=== PATIENT | female | born 1980 | race Two or more races ===

== ENCOUNTER 2018-02-06 19:19 | Inpatient (IN) | payer OTHER ==
[2018-02-06 20:05] VITALS: BMI 32.3
[2018-02-06 21:44] LABS: BASO # 0.1 K/uL (0.0-0.2); BASO % 0.7 % (0.0-2.0); EOS # 0.2 K/uL (0.0-0.7); EOS % 1.9 % (0.0-4.0); HEMOGLOBIN 12.1 g/dL (12.0-16.0); LYMPH # 1.6 K/uL (1.0-4.3); LYMPH % 18.3 % (20.0-40.0); MEAN CELL VOLUME 88.3 fl (81.0-99.0); MEAN CORPUSCULAR HEMOGLOBIN 29.7 pg (27.0-31.0); MEAN CORPUSCULAR HGB CONC 33.6 g/dL (33.0-37.0); MEAN PLATELET VOLUME 8.9 fl (7.2-11.7); MONO # 0.5 K/uL (0.0-0.8); MONO % 5.5 % (0.0-10.0); NEUT # 6.3 K/uL (1.8-7.0); NEUT % 73.6 % (50.0-75.0); RBC 4.09 Mil/uL (3.80-5.20); RED CELL DISTRIBUTION WIDTH 14.3 % (11.5-14.5); WHITE BLOOD COUNT 8.6 K/uL (4.8-10.8)
--- NOTE | 2018-02-07 01:33 | OBHP ---
Datetime: 02/06/2018 22:58 FHR - Baseline A Provider: 140 Vital Signs Provider: Reviewed; Within Normal Limits NICHD Variability Prov Fetus A: Moderate 6-25bpm NICHD Accel Fetus A IP Provider: 15X15 FHR Category Provider Fetus A: Category I NICHD Decel Fetus A IP Provider: None Dilatation, Provider: 1 Effacement, Provider: long Station, Provider: high Datetime: 02/06/2018 19:45 IP Admit Plan: Admit to unit; Initiate labor induction protocol Pelvic Type - PN: Adequate Extremities - PN: Normal Abdomen - PN: Normal Back - PN: Normal Breast - PN: Not Done Lungs - PN: Normal Heart - PN: Normal Thyroid - PN: Not Done Neurologic - PN: Normal HEENT - PN: Normal General - PN: Normal EGA AdmitDate IP: 41.0 IP Chief Complaint: Scheduled induction of labor Genitourinary Exam: Normal DTRs - PN: Not Done Datetime: 02/06/2018 19:30 IP Adm Impression: Term, intrauterine ; No Active Labor; Intact Membranes Admit Comment, IP Provider: 37 yo EGA 41.0 presents for scheduled induction of labor. Positive: FM; Denies: CTX, LOF, VB ROS: Denies: dizziness, headaches, blurred vision, CP/SOB/N/V, dysuria care: Dr. Dillon - chart rev'd obhx: GBS positive Pmhx: [place], PCOS famhx: DM, HTN, Cancer: brain and liver Soc: lives with , Denies: smoking, alcohol, illicit drugs Surg: laparoscopic Appendectomy 2016 Allergies: dust Meds: Metformin, PNV, [place] PRN General: pleasant, in no acute distress HEENT: normocephalic, PERRLA; AAOx3 Heart: no murmurs, regular rate and rhythm, S1, S2 normal. Lungs: clear to auscultation bilaterally, no wheezing Abdomen: nontender, gravid CVA: negative Lower extremities: negative for pitting edema HBSAG: NEG, GBS: POS; RUBELLA: IM; RPR: NEG; AB+ AB: NEG; TDAP 12/05/2017 37 yo IUP 41.0 -Admit for induction of labor -Saline lock -Labs: cbc, type and screen, hiv, gc/c, -Meds: Cervidil and penicillin G IV 5 mu x1 followed with 2.5 mu q4 at onset of active labor -[employer]: Dr. Summer Beltrán MD PGY1 OB Hospitalist on-call - pt seen and examined. She is hungry and wants to eat dinner - Discussio n about IOL, medications, labor, pain management, delivery and care. will start with Cerv dieudonne for IOL MAHNDO Presentation-Admit: Vertex IP Hx Assessment: The History has been Reviewed and is Current
--- NOTE | 2018-02-07 01:33 | OBPN ---
Datetime: 02/06/2018 22:58 IP Progress Plan Other: Cervidil IP Progress Impression: Normal progression of labor IP Informed Consent Obtain: Vaginal Delivery IP Progress Plan: Continue present management; Induction FHR - Baseline A Provider: 140 IP Progress Note Comment: Cervidil placed by Mike Beltrán MD PGY1 at 22:58 [facility]..aware of above Vital Signs Provider: Reviewed; Within Normal Limits NICHD Accel Fetus A IP Provider: 15X15 FHR Category Provider Fetus A: Category I NICHD Variability Prov Fetus A: Moderate 6-25bpm Dilatation, Provider: 1 Effacement, Provider: long Station, Provider: high NICHD Decel Fetus A IP Provider: None Datetime: 02/06/2018 19:30 Presentation-Admit: Vertex
[2018-02-07] MEDS ORDERED: Nalbuphine 20 mg/ml Inj (1 ml) IVP PRN (10:30)
[2018-02-07] MEDS ORDERED: Nalbuphine 20 mg/ml Inj (1 ml) ONE (10:33)
[2018-02-07] MEDS ORDERED: Penicillin G 5 Million Unit Vial IVPB ONE ×2 (10:34→23:01)
[2018-02-07] MEDS: Lactated Ringer's 1,000 ML IV SCH (10:45)
[2018-02-07] MEDS ORDERED: Oxytocin 30 units/LR 500ML 30 U/500 ML BAG IV ONE ×2 (14:15→14:25)
[2018-02-07] MEDS ORDERED: Fentanyl/Bupivacaine HCl 250 ML EPI ONE (15:32)
[2018-02-07] MEDS ORDERED: ceFAZolin 2 GM in Sodium Chloride 0.9% 100 ML IVPB ONE (22:58)
[2018-02-07] MEDS ORDERED: Lidocaine 2% PF (10 ml) Amp ONE (23:07)
[2018-02-07] MEDS ORDERED: Morphine 1 mg/ml preservative-free Inj(Duramorph) ONE (23:49)
[2018-02-07] MEDS ORDERED: Propofol 10 mg/ml Inj (20 ML) ONE (23:57)
[2018-02-08] MEDS ORDERED: Oxycodone/Acetaminophen 5/325 mg Tab PO PRN ×2 (00:13→04:38)
[2018-02-08] MEDS ORDERED: DiphenhydrAMINE 50 mg/ml Inj IVP PRN ×2 (00:44→04:38)
[2018-02-08] MEDS: Lactated Ringer's 1,000 ML IV SCH (00:45)
--- NOTE | 2018-02-08 01:37 | OP ---
PROCEDURE DATE: 02/08/2018 PREOPERATIVE DIAGNOSES: Intrauterine at 40 plus weeks and arrest of dilation. POSTOPERATIVE DIAGNOSES: Intrauterine at 40 plus weeks, arrest of dilation with occiput posterior, and one loose nuchal cord. SURGEON: Bairon Dillon MD SOLE LEVELER: Dr. Zepeda. He was helpful in delivering the baby, helpful in obtaining hemostasis, closure of the patient, and the procedure would not have been possible without his assistance. ANESTHESIA ADMINISTERED BY: Bill Helms DO ESTIMATED BLOOD LOSS: 800 mL. URINE OUTPUT: Roberts catheter put out approximately 100 mL of blood-tinged urine. INTRAVENOUS FLUID INTAKE: The patient received 900 mL of D5 LR intraoperatively. OPERATIVE FINDINGS: Baby girl, Apgars 9 and 9, weighing 3860 g, occiput posterior position, and normal uterus, tubes, and ovaries were identified. COMPLICATIONS: There were no complications. DESCRIPTION OF PROCEDURE: After informed consent was obtained, the patient was taken to the operating room where she was given spinal anesthesia. She was then prepped and draped in a normal sterile fashion with the leftward tilt. A Pfannenstiel skin incision was then made with the scalpel and carried down to the underlying layer of fascia. The fascia was nicked in the midline. The fascial incision was then extended laterally with the curved Michelle scissors. The superior aspect of the fascial incision was then grasped with Isaac clamps, elevated up, and the rectus muscles were dissected off using both sharp and blunt dissection. Attention was then turned to the inferior aspect of the fascial incision, which in a similar fashion was grasped with Isaac clamps, elevated up, and the rectus muscles were dissected off using both sharp and blunt dissection. The rectus muscles were in the midline, the peritoneum identified and entered sharply with the Metzenbaum scissors. The peritoneal incision was then extended superiorly and inferiorly with good visualization of the bladder. The bladder blade was inserted. The vesicouterine peritoneum was identified and entered sharply with the Metzenbaum scissors. The incision was then extended laterally and the bladder flap was created digitally. The bladder blade was then readjusted and a low-transverse incision was made with the scalpel. The incision was then extended laterally with the bandage scissors. The infant was noted to be in occiput posterior position. The head was then delivered atraumatically. The nose and mouth were suctioned with DeLee suction trap. The cord was clamped and cut and the infant was handed off to awaiting pediatricians. The placenta was then removed manually. The uterus was exteriorized and cleared off all clots and debris. The uterine incision was repaired with 0 Vicryl in a running locked fashion. A second layer of the same suture was used to obtain an excellent hemostasis. The abdomen was then copiously irrigated. The irrigant was removed with the suction device. The incision was examined and hemostasis was noted. The gutters were cleared of all clots and debris. The peritoneum was then closed with 2-0 Vicryl in a running fashion. The muscle was reapproximated with 0 Vicryl in an interrupted fashion. The fascia was closed with 0 Vicryl in a running fashion. The skin was closed with 3-0 on a Chalo needle. All sponge, lap, needle, and instrument counts were correct x2 and the patient was taken to the recovery room in awake and stable condition. Bairon Dillon MD
[2018-02-08] MEDS ORDERED: Simethicone 80 mg Chewtab PO SCH (04:00)
[2018-02-08] MEDS ORDERED: Lactated Ringer's 1,000 ML IV SCH (04:38)
[2018-02-08 06:44] LABS: HEMOGLOBIN 10.9 g/dL (12.0-16.0); MEAN CELL VOLUME 88.8 fl (81.0-99.0); MEAN CORPUSCULAR HEMOGLOBIN 29.5 pg (27.0-31.0); MEAN CORPUSCULAR HGB CONC 33.2 g/dL (33.0-37.0); RBC 3.69 Mil/uL (3.80-5.20); RED CELL DISTRIBUTION WIDTH 14.3 % (11.5-14.5); WHITE BLOOD COUNT 19.4 K/uL (4.8-10.8)
--- NOTE | 2018-02-08 07:47 | OBDS ---
DELIVERY PERSONNEL Delivery Doctor: Ramirez Dillon MD Scrub Nurse: [facility] Technical Officer: Angi Verduzco RN Anesthesiologist: Mika Helms MD Resident: Leigh Ann DIXON MATERNAL INFORMATION Delivery Anesthesia: Epidural Medications in Delivery: pennG, pitocin Estimated Blood Loss (ml): 800 Placenta Cultured: No Maternal Complications: None Provider Comments: See operative report LABOR SUMMARY EDC: 01/30/2018 00:00 No. Babies in Womb: 1 Attempted: No Labor Anesthesia: Epidural LABOR INFORMATION Reason for Induction: Postterm Onset of Labor: 02/07/2018 18:25 Cervical Ripening Agents: Cervidil Oxytocin: Induction Group B Beta Strep: Negative Antibiotics # of Doses: x4 Antibiotics Time of Last Dose: 1830 Steroids Given: None Reason Steroids Not Administered: Not Applicable MEMBRANES Membranes Rupture Method: Artificial Rupture of Membranes: 02/07/2018 10:27 Length of Rupture (hrs): 13.20 Amniotic Fluid Color: Clear Amniotic Fluid Amount: Small Amniotic Fluid Odor: Normal STAGES OF LABOR Stage 3 hrs: 0 Stage 3 min: 1 Total Time in Labor hrs: 5 Total Time in Labor min: 15 CSECTION DELIVERY Primary Indication: Arrest of Labor CSection Urgency: Elective CSection Incidence: Primary Labor: Labor Elective: Elective CSection Incision: Lower Uterine Transverse BABY A INFORMATION Delivery Date/Time: 02/07/2018 23:39 Method of Delivery: Vaginal Born in Route : No : N/A Forceps: N/A Vacuum Extraction: N/A Shoulder Dystocia : No SHOULDER DYSTOCIA BABY A Infant Delivery Date/Time: 02/07/2018 23:39 PRESENTATION/POSITION BABY A Presentation: Cephalic Vertex Position: OP PLACENTA INFORMATION BABY A Placenta Delivery Time : 02/07/2018 23:40 Placenta Method of Delivery: Manual Removal Placenta Status: Delivered SCORES BABY A Heart Rate 1 min: >100 bpm Resp Effort 1 min: Good Cry Reflex Irritability 1 min: Cough or Sneeze or Pulls Away Muscle Tone 1 min: Active Motion Color 1 min: Body [place], Extremities Blue Resuscitation Effort 1 min: N/A SCORE 1 MIN: 9 Heart Rate 5 min: >100 bpm Resp Effort 5 min: Good Cry Reflex Irritability 5 min: Cough or Sneeze or Pulls Away Muscle Tone 5 min: Active Motion Color 5 min: Body [place], Extremities Blue Resuscitation Effort 5 min: N/A SCORE 5 MIN: 9 INFANT INFORMATION BABY A Gestational Age at Delivery: 41.1 Gestational Status: Term Infant Outcome : Liveborn Condition : Stable Sex: Female IDENTIFICATION/MEDS BABY A ID Band Number: [id number] ID Band Location: Left Leg; Left Arm WEIGHT/LENGTH BABY A Infant Birthweight (gms): 3860 Infant Weight (lb): 8 Infant Weight (oz): 8 Infant Length Inches: 21.75 Infant Length cms: 55.2 CORD INFORMATION BABY A No. Cord Vessels: 3 Nuchal Cord : Around Neck x1, Loose Cord Blood Taken: Yes ASSESSMENT BABY A Infant Complications: None Physical Findings at Delivery: Within Normal Limits Respirations: Appears Normal Pedodontist/ALS Called : No Care By: DR Veláqzuez and Samara Ambriz RN Transferred To: Nursery
[2018-02-08] MEDS: Simethicone 80 mg Chewtab PO SCH ×3 (08:59→21:28)
[2018-02-09] MEDS: Simethicone 80 mg Chewtab PO SCH ×4 (04:50→22:07)
--- NOTE | 2018-02-09 17:22 | OBPPN ---
Datetime: 02/09/2018 17:18 PP Pain Prov: Within normal limits PP Nausea Prov: Denies PP Flatus Prov: Yes PP BM Prov: No PP Breasts Prov: Normal PP Heart Prov: Normal PP Lungs Prov: Normal PP Abdomen/Uterus Prov: Normal PP Extremities Prov: Normal PP C/S Incision Prov: Normal PP Progress Prov: Normal PP Comments Phys Exam Prov: HGB 10.9 PP Impression Prov: Normal progression PP Plan Prov: Continue present management PP Progress Note Prov: S: NO C/O. Tolerating regular diet. Pain well controlled with medications. I: postop day #1 delivery doing well Plan: Routine postoperative care Wound hygiene discussed with patient IP PP Procedures: None Vital Signs Provider PP: Within Normal Limits
[2018-02-10] MEDS: Simethicone 80 mg Chewtab PO SCH ×2 (04:20→12:03)
--- NOTE | 2018-02-10 10:45 | OBDCSUM ---
Datetime: 02/10/2018 10:44 Discharged to, Provider: Home Follow up at, Provider: Santana Montalvo Instr Activity: Normal activity Disch Instr Diet: Regular Discharge Instructions, Provider: Routine instructions given Discharge Diagnosis, Provider: Term Delivered Discharge Time: 02/10/2018 10:44 Follow up in weeks, Provider: 1 week Disch Referrals: None Contraception discussed, Prov: Yes Disch Activity Restrictions: No lifting; Nothing in vagina - [place], tampons, douche
--- NOTE | 2018-02-10 10:45 | OBPPN ---
Datetime: 02/10/2018 10:42 PP Pain Prov: Within normal limits PP Nausea Prov: Denies PP Flatus Prov: Yes PP Breasts Prov: Normal PP Heart Prov: Normal PP Lungs Prov: Normal PP Abdomen/Uterus Prov: Normal PP Lochia Prov: Normal PP Vulva/Perineum Prov: Normal PP CVA Tenderness Prov: Normal PP Extremities Prov: Normal PP C/S Incision Prov: Normal PP Progress Prov: Normal PP Comments Phys Exam Prov: Abdomen soft, nontender, nondistended Incision clean, dry, intact Uterus firm, below umbilicus No deep calf Tenderness bilaterally PP Impression Prov: Normal progression PP Plan Prov: Discharge PP Progress Note Prov: Postoperative #3 status post [id number] recovering well Discharge patient home today with postop instructions Follow-up in office in 1 week for incision check All patient questions answered. IP PP Procedures: None Vital Signs Provider PP: Reviewed; Within Normal Limits
[2018-02-10 19:23] VITALS: BP 138/74; PULSE 80; RESP 20; TEMP 97.1; O2SAT 98
== END 2018-02-10 14:13 | disposition home or self-care (01) | DRG 766 ==
LOC: H.L&D 20:06 → H.OB/GYN 02-08 03:45
PROVIDERS: ADMIT Obstetrics & Gynecology; ATTEND Obstetrics & Gynecology
PROC: 10D00Z1 Extraction of Products of Conception, Low, Open Approach (ICD-10-PCS; principal; 2018-02-06)
PROC: 4A1HXCZ Monitoring of Products of Conception, Cardiac Rate, External Approach (ICD-10-PCS; 2018-02-06)
DX: O48.0 Post-term pregnancy (principal); Z37.0 Single live birth; Z3A.41 41 weeks gestation of pregnancy; O69.81X0 Labor and delivery complicated by cord around neck, without compression, not applicable or unspecified; O99.824 Streptococcus B carrier state complicating childbirth; O62.0 Primary inadequate contractions